=== PATIENT | female | born 1975 | race Caucasian/White ===

== ENCOUNTER 2016-09-09 10:49 | Emergency (ER) | payer OTHER ==
[~2016-09-09] VITALS: Ht 157.5 cm; Wt 88.5 kg
[~2016-09-09 10:49] MED LIST: AMOX1TAB10 PO; HYDR-3498 PO; IBUP-1542 PO
[2016-09-09 10:54] VITALS: Ht 157.5 cm; Wt 88.5 kg
[2016-09-09 12:07] LABS: BASOPHIL # 0.2 10^3/ul (0.0-0.1); BASOPHILS % 1.7 % (0.0-2.0); EOSINOPHILS # 0.1 10^3/ul (0.0-0.5); HEMATOCRIT 38.9 % (37.0-47.0); HEMOGLOBIN 12.6 g/dl (12.0-16.0); LYMPHOCYTES # 2.4 10^3/ul (0.8-2.9); MEAN CORPUSCULAR HEMOGLOBIN 27.9 pg (29.0-33.0); MEAN CORPUSCULAR HGB CONC 32.4 g/dl (32.0-37.0); MEAN CORPUSCULAR VOLUME 86.1 fl (82.0-101.0); MEAN PLATELET VOLUME 8.5 fl (7.4-10.4); MONOCYTE # 0.5 10^3/ul (0.3-0.9); MONOCYTES % 5.1 % (0.0-11.0); NEUTROPHIL # 6.7 10^3/ul (1.6-7.5); NEUTROPHILS % 68.2 % (39.0-77.0); PLATELET COUNT 378 10^3/UL (140-440); RED BLOOD COUNT 4.51 10^6/ul (4.20-5.40); RED CELL DISTRIBUTION WIDTH 14.5 % (11.5-14.5); UNCORRECTED WBC 9.8 10^3/ul (4.8-10.8); WHITE BLOOD COUNT 9.8 10^3/ul (4.8-10.8)
[2016-09-09 12:09] LABS: CONDITION 1
[2016-09-09 12:15] LABS: ALBUMIN 3.9 g/dl (3.3-4.9); POTASSIUM 4.2 mmol/L (3.5-5.1)
[2016-09-09 12:17] LABS: CREATININE 0.6 mg/dl (0.44-1.00)
[2016-09-09 12:18] LABS: ALBUMIN/GLOBULIN RATIO 1.3; BILIRUBIN,INDIRECT 0.1 mg/dl (0-1.1); BILIRUBIN,TOTAL 0.1 mg/dl (0.2-1.3); TOTAL PROTEIN 6.9 g/dl (6.1-8.1)
[2016-09-09 12:19] LABS: CALCIUM 8.8 mg/dl (8.4-10.2)
[2016-09-09 13:18] LABS: URINE BLOOD (Dip) POC Negative (NEGATIVE)
[2016-09-09] MEDS ORDERED: CEFTRIAXONE 1 GM INJ IM ONE (14:30)
[2016-09-09] MEDS ORDERED: CIPR500T4 PO (14:30)
[2016-09-09 15:15] VITALS: BP 125/64; PULSE 72; RESP 18; TEMP 98.5
--- NOTE | 2016-09-09 18:03 | ERD ---
ER Documentation Chief Complaint Date/Time DATE: 09/09/16 TIME: 17:40 Chief Complaint here for numbness of hands and VALDES did a random glucose check and had 200+ HPI Patient is a 41-year-old female she complains of headache polyuria frequency polydipsia. She says 4 days ago she checked her blood sugar and it was 264 this was 2 hours after she had eaten. She has some numbness in her arms and legs. Sometimes blurry vision dry mouth. Worried about diabetes. No past medical history allergies of medications. ROS All systems reviewed and are negative except as per history of present illness. Medications Home Meds Active Scripts Ciprofloxacin Hcl* (Ciprofloxacin Hcl*) 500 Mg Tablet, 500 MG PO BID for 7 Days , TAB Prov:BETSY BERKOWITZ DO 09/09/16 Ibuprofen* (Motrin*) 600 Mg Tab, 600 MG PO Q6, #30 TAB Prov:PIEDAD WETZEL PA-C 03/14/16 Hydrocodone Bit-Acetaminophen* (Monitor*) 5-325 Mg Tab, 1 TAB PO Q6 Y for PAIN, # 10 TAB Prov:PIEDAD WETZEL PA-C 03/14/16 Amox Tr/Potassium Clavulanate (Amox Tr-K Clv 875-125 Mg Tab) 1 Tab Tablet, 1 TAB PO BID for 7 Days, #14 TAB Prov:PIEDAD WETZEL PA-C 03/14/16 Allergies Allergies: Coded Allergies: No Known Allergy (Unverified , 05/22/14) PMhx/Soc History of Surgery: Yes () Anesthesia Reaction: No Hx Neurological Disorder: No Hx Respiratory Disorders: No Hx Cardiac Disorders: No Hx Psychiatric Problems: No Hx Miscellaneous Medical Probl: No Hx Alcohol Use: No Hx Substance Use: No Hx Tobacco Use: No Physical Exam Vitals Vital Signs Date Time Temp Pulse Resp B/P Pulse Ox O2 Delivery O2 Flow Rate FiO2 09/09/16 15:15 98.5 72 18 125/64 100 Room Air 09/09/16 10:54 98.5 72 18 131/62 100 Physical Exam Const: [Alert oriented 4, well-nourished well-developed nontoxic- appearing no apparent distress, interacts appropriately] Head: [Normocephalic/atraumatic, no scalp lesions] Eyes: [Normal Conjunctiva, PERRLA, EOMI no conjunctival injection no conjunctival discharge] ENT: [Normal External Ears, Nose and Mouth, no tonsillar exudates no tonsillar erythema no tonsillar edema oropharynx no erythema. bilateral ear canals are patent, bilateral tympanic membranes nonerythematous.] Neck: [Full range of motion. No meningismus. No cervical lymphadenopathy] Resp: [Clear to auscultation bilaterally, no wheezes rhonchi or rales, breathing normally, no tachypnea no nasal flaring no grunting no accessory muscle use no retractions] Cardio: [Regular rate and rhythm, no murmurs] Abd: [Soft, non tender, non distended. Normal bowel sounds, no rebound rigidity or guarding. Normoactive bowel sounds no flank tenderness, negative McBurney's negative Asif sign.] Skin: [No petechiae or rashes, no hives no urticaria no abscess no laceration no new warmth] Back: [No midline or flank tenderness, full range of motion without pain ] Ext: [No cyanosis, clubbing or edema] Neuro: M/S: Alert and oriented 4. Face: EOMI, face and pharynx with normal sensation and function Motor: Normal strength throughout, muscle strength is 5 out of 5 bilateral upper extremity and bilateral lower extremity Sensation: Normal sensation throughout Speech: Normal Cerebel: Normal coordination Normal gait DTR: 2+ and symmetric upper/lower extremities Psych: [Normal Mood and Affect, no suicidal ideation or homicide ideation] Result Diagram: 09/09/16 1150 09/09/16 1150 Results 24 hrs Laboratory Tests Test 09/09/16 11:17 09/09/16 11:50 09/09/16 13:18 Bedside Glucose 108mg/dL Alanine Aminotransferase (ALT/SGPT) 31IU/L Albumin 3.9g/dl Albumin/Globulin Ratio 1.30 Alkaline Phosphatase 78IU/L Anion Gap 15 Aspartate Amino Transf (AST/SGOT) 15IU/L Basophils # 0.210^3/ul Basophils % 1.7% Blood Morphology Comment Blood Urea Nitrogen 13mg/dl Calcium Level 8.8mg/dl Carbon Dioxide Level 28mmol/L Chloride Level 108mmol/L Creatinine 0.60mg/dl Direct Bilirubin 0.00mg/dl Eosinophils # 0.110^3/ul Eosinophils % 1.0% Globulin 3.00g/dl Glucose Level 98mg/dl Hematocrit 38.9% Hemoglobin 12.6g/dl Indirect Bilirubin 0.1mg/dl Lymphocytes # 2.410^3/ul Lymphocytes % 24.0% Mean Corpuscular Hemoglobin 27.9pg Mean Corpuscular Hemoglobin Concent 32.4g/dl Mean Corpuscular Volume 86.1fl Mean Platelet Volume 8.5fl Monocytes # 0.510^3/ul Monocytes % 5.1% Neutrophils # 6.710^3/ul Neutrophils % 68.2% Nucleated Red Blood Cells # 0.010^3/ul Nucleated Red Blood Cells % 0.0/100WBC Platelet Count 01636^3/UL Potassium Level 4.2mmol/L Red Blood Count 4.5110^6/ul Red Cell Distribution Width 14.5% Sodium Level 147mmol/L Total Bilirubin 0.1mg/dl Total Protein 6.9g/dl White Blood Count 9.810^3/ul Bedside Urine Blood Negative Bedside Urine Glucose (UA) Negative Bedside Urine Ketones (LAB) Negative Bedside Urine Leukocyte Esterase (L Negative Bedside Urine Nitrite (LAB) Positive Bedside Urine Protein (LAB) Trace Bedside Urine pH (LAB) 7.5 Current Medications Medications (Trade) Dose Ordered Sig/Jake Route PRN Reason Start Time Stop Time Status Last Admin Dose Admin Ceftriaxone Sodium (Rocephin) 1 gm ONCE ONCE IM 09/09/16 14:30 09/09/16 14:31 DC 09/09/16 15:06 Procedures/MDM Urine shows positive nitrites negative leukocytes, with a positive nitrites she likely has a UTI explaining her urinary frequency. Her blood sugar is not elevated she does not have glucosuria so less likely that she has diabetes however she can have an outpatient workup for possible diabetes and they can do a fasting blood sugar. Will give her antibiotics and she is to follow-up with her primary doctor. I doubt pyelonephritis as she has no fever no flank tenderness. I doubt appendicitis diverticulitis or acute infectious or inflammatory intra-abdominal process. She has no neurological deficits so I did not feel she warranted a CAT scan. Vital signs are stable she appears well since she stable for discharge and outpatient follow-up. Departure Diagnosis: Primary Impression: Acute UTI Additional Impression: Polyuria Condition: Stable Patient Instructions: Understanding Urinary Tract Infections (UTIs) BETSY BERKOWITZ DO Sep 09, 2016 17:50
== END 2016-09-09 15:27 | disposition home or self-care (01) ==
LOC: FTE 10:49
DX: N39.0 Urinary tract infection, site not specified (principal); R35.8 Other polyuria
CPT/HCPCS: 80053; 81003; 82962; 85025; J0696; 96372

== ENCOUNTER 2017-01-12 14:58 | Emergency (ER) | payer OTHER ==
[~2017-01-12] VITALS: Wt 71.0 kg
[~2017-01-12 14:58] MED LIST changes: +CIPR500T4 PO
[2017-01-12] MEDS ORDERED: IBUPROFEN 800 MG TAB PO ONE (17:00)
--- NOTE | 2017-01-12 17:19 | RADRPT ---
PROCEDURE: Shoulder series CLINICAL INDICATION: Shoulder pain status post trauma TECHNIQUE: Three views of the right shoulder. COMPARISON: None available FINDINGS: The osseous structures are intact with no evidence of fracture or dislocation. The acromioclavicula r and coracoclavicular regions are unremarkable. The soft tissues are normal in appearance. The rig ht lung apex and right ribs are normal. IMPRESSION: 1. No acute fractures or dislocations. RPTAT: HDC .Tamiko Del Toro MD, Date Time Electronically viewed and signed by .Tamiko Del Toro MD, on 01/12/2017 17:19 .C/
[2017-01-12] MEDS ORDERED: IBUP800T25 PO (17:24)
[2017-01-12] MEDS ORDERED: HYDR-906 PO (17:24)
--- NOTE | 2017-01-12 17:25 | ERD ---
ER Documentation Chief Complaint Date/Time DATE: 01/12/17 TIME: 17:24 Chief Complaint RIGHT SHOULDER PAIN X 1 DAYS HPI This a 41-year-old female who lost her balance walking this morning and fell landed on her right shoulder. She is complaining of pain in the right anterior shoulder with range of motion described as sharp that is worse with movement better with rest. Did not hit her head and get knocked out no head injury no neck pain no chest pain back pain other extremity pain no abdominal pain no difficulty breathing no numbness or weakness in the ROS All systems reviewed and are negative except as per history of present illness. Medications Home Meds Active Scripts Hydrocodone/Acetaminophen (York 5-325 Tablet) 1 Each Tablet, 1 TAB PO Q6H Y for PAIN, #20 TAB Prov:OTONIEL JOHNSONS Hali. DO 01/12/17 Ibuprofen* (Motrin*) 800 Mg Tab, 800 MG PO Q6H Y for PAIN AND OR ELEVATED TEMP, #30 TAB Prov:JEFF JOHNSON DO 01/12/17 Ciprofloxacin Hcl* (Ciprofloxacin Hcl*) 500 Mg Tablet, 500 MG PO BID for 7 Days , TAB Prov:SHOBETSY DO 09/09/16 Ibuprofen* (Motrin*) 600 Mg Tab, 600 MG PO Q6, #30 TAB Prov:PIEDAD WETZEL PA-C 03/14/16 Hydrocodone Bit-Acetaminophen* (York*) 5-325 Mg Tab, 1 TAB PO Q6 Y for PAIN, # 10 TAB Prov:PIEDAD WETZEL PA-C 03/14/16 Amox Tr/Potassium Clavulanate (Amox Tr-K Clv 875-125 Mg Tab) 1 Tab Tablet, 1 TAB PO BID for 7 Days, #14 TAB Prov:PIEDAD WETZEL PA-C 03/14/16 Allergies Allergies: Coded Allergies: No Known Allergy (Unverified , 05/22/14) PMhx/Soc History of Surgery: Yes () Anesthesia Reaction: No Hx Neurological Disorder: No Hx Respiratory Disorders: No Hx Cardiac Disorders: No Hx Psychiatric Problems: No Hx Miscellaneous Medical Probl: No Hx Alcohol Use: No Hx Substance Use: No Hx Tobacco Use: No FmHx Family History: No coronary disease Physical Exam Vitals Vital Signs Date Time Temp Pulse Resp B/P Pulse Ox O2 Delivery O2 Flow Rate FiO2 01/12/17 15:18 98.0 71 18 123/71 99 Physical Exam Const: Well-developed, well-nourished Head: Atraumatic, normocephalic Eyes: Normal Conjunctiva, PERRLA, EOMI, normal sclera, no nystagmus ENT: Normal External Ears, Nose and Mouth, moist mucus membranes. Neck: Full range of motion. No meningismus, no lymphadenopathy. Resp: Clear to auscultation bilaterally, no wheezing, rhonchi, rales Cardio: Regular rate and rhythm, no murmurs, S1 S2 present Abd: Soft, non tender x 4, non distended. Normal bowel sounds, no guarding or rebound, no pulsitile abdominal masses or bruits Skin: No petechiae or rashes, no ecchymosis , no maculopapular rash Back: No midline or flank tenderness Ext: No cyanosis, or edema, FROM x 4, normal inspection, neurovascularly intact x 4, tenderness to the anterior right shoulder with limited arm flexion and abduction no dislocation Neur: Awake and alert, STR 5/5 x 4, sensation intact x 4, no focal findings, cerebellum intact Psych: Normal Mood and Affect Results 24 hrs Current Medications Medications (Trade) Dose Ordered Sig/Jake Route PRN Reason Start Time Stop Time Status Last Admin Dose Admin Ibuprofen (Motrin) 800 mg ONCE ONCE PO 01/12/17 17:00 01/12/17 17:01 DC 01/12/17 17:19 Procedures/MDM PROCEDURE: Shoulder series CLINICAL INDICATION: Shoulder pain status post trauma TECHNIQUE: Three views of the right shoulder. COMPARISON: None available FINDINGS: The osseous structures are intact with no evidence of fracture or dislocation. The acromioclavicular and coracoclavicular regions are unremarkable. The soft tissues are normal in appearance. The right lung apex and right ribs are normal. IMPRESSION: 1. No acute fractures or dislocations. RPTAT: HDC .Tamiko Del Toro MD, Date Time Electronically viewed and signed by .Tamiko Del Toro MDMD on 01/12/2017 17: 19 .C/ CC: JEFF JOHNSON DO Provided her the sling Departure Diagnosis: Primary Impression: Shoulder injury Encounter type: initial encounter Laterality: right Qualified Code: S49.91XA - Shoulder injury, right, initial encounter Condition: Stable Patient Instructions: Shoulder Contusion Referrals: DUNCAN BLACKWOOD MD (PCP) JEFF JOHNSON DO January 12, 2017 17:25
== END 2017-01-12 17:30 | disposition home or self-care (01) ==
LOC: FTE 14:58
DX: S49.91XA Unspecified injury of right shoulder and upper arm, initial encounter (principal); W18.39XA Other fall on same level, initial encounter; Y92.9 Unspecified place or not applicable
CPT/HCPCS: 73030; Z7502; Z7610

== ENCOUNTER 2017-06-24 20:22 | Inpatient (IN) | payer OTHER ==
[~2017-06-24] VITALS: Ht 152.4 cm; Wt 92.6 kg
[~2017-06-24 20:22] MED LIST changes: +HYDR-906 PO; +IBUP800T25 PO
[2017-06-25] VITALS (9 sets, daily range): BP systolic 97–111; BP diastolic 53–80; PULSE 56–72; RESP 18–20; TEMP 98; Ht 152.4 cm; Wt 92.6 kg
[2017-06-25] MEDS ORDERED: ASPIRIN 325 MG TAB PO STA (01:05)
[2017-06-25] MEDS ORDERED: NITROGLYCERIN 2% 1 GM OINT PKT TD STA (01:05)
--- NOTE | 2017-06-25 01:25 | ERA ---
ER Documentation Chief Complaint Date/Time DATE: 06/25/17 TIME: 01:24 Chief Complaint CP DESCRIBED PRESSURE, ALSO REPORT VALDES X TODAY ONLY HPI This is a 41-year-old female complains of onset today of off-and-on substernal chest pressure lasting about 30 minutes each time. Pain is described a pressure sensation with no radiation. She says she has no shortness of breath no palpitations no dizziness no syncope. The patient states she does not know she has any medical problems because she never goes to the doctor but her parents have not had any heart disease. Currently she has no chest pain. Pain is described as moderate strength ROS All systems reviewed and are negative except as per history of present illness. Medications Home Meds Active Scripts Hydrocodone/Acetaminophen (Delta 5-325 Tablet) 1 Each Tablet, 1 TAB PO Q6H Y for PAIN, #20 TAB Prov:JEFF JOHNSON DO 01/12/17 Ibuprofen* (Motrin*) 800 Mg Tab, 800 MG PO Q6H Y for PAIN AND OR ELEVATED TEMP, #30 TAB Prov:JEFF JOHNSON DO 01/12/17 Ciprofloxacin Hcl* (Ciprofloxacin Hcl*) 500 Mg Tablet, 500 MG PO BID for 7 Days , TAB Prov:BETSY BERKOWITZ DO 09/09/16 Ibuprofen* (Motrin*) 600 Mg Tab, 600 MG PO Q6, #30 TAB Prov:PIEDAD WETZEL PA-C 03/14/16 Hydrocodone Bit-Acetaminophen* (Delta*) 5-325 Mg Tab, 1 TAB PO Q6 Y for PAIN, # 10 TAB Prov:PIEDAD WETZEL PA-C 03/14/16 Amox Tr/Potassium Clavulanate (Amox Tr-K Clv 875-125 Mg Tab) 1 Tab Tablet, 1 TAB PO BID for 7 Days, #14 TAB Prov:PIEDAD WETZEL PA-C 03/14/16 Allergies Allergies: Coded Allergies: No Known Allergy (Unverified , 05/22/14) PMhx/Soc Medical and Surgical Hx: pt denies Medical Hx History of Surgery: Yes () Anesthesia Reaction: No Hx Neurological Disorder: No Hx Respiratory Disorders: No Hx Cardiac Disorders: No Hx Psychiatric Problems: No Hx Miscellaneous Medical Probl: No Hx Alcohol Use: No Hx Substance Use: No Hx Tobacco Use: No Smoking Status: Never smoker FmHx Family History: No coronary disease Physical Exam Vitals Vital Signs Date Time Temp Pulse Resp B/P Pulse Ox O2 Delivery O2 Flow Rate FiO2 06/25/17 00:36 98.0 74 20 111/71 100 Room Air 06/24/17 20:59 98.0 80 20 129/67 97 Physical Exam Const: Well-developed, well-nourished Head: Atraumatic, normocephalic Eyes: Normal Conjunctiva, PERRLA, EOMI, normal sclera, no nystagmus ENT: Normal External Ears, Nose and Mouth, moist mucus membranes. Neck: Full range of motion. No meningismus, no lymphadenopathy. Resp: Clear to auscultation bilaterally, no wheezing, rhonchi, rales Cardio: Regular rate and rhythm, no murmurs, S1 S2 present Abd: Soft, non tender x 4, non distended. Normal bowel sounds, no guarding or rebound, no pulsitile abdominal masses or bruits Skin: No petechiae or rashes, no ecchymosis , no maculopapular rash Back: No midline or flank tenderness Ext: No cyanosis, or edema, FROM x 4, normal inspection, neurovascularly intact x 4 Neur: Awake and alert, STR 5/5 x 4, sensation intact x 4, no focal findings, cerebellum intact Psych: Normal Mood and Affect Result Diagram: 06/25/1714406/25/17144 Results 24 hrs Laboratory Tests Test 06/25/17 01:45 White Blood Count 14.010^3/ul Red Blood Count 4.1010^6/ul Hemoglobin 11.9g/dl Hematocrit 37.0% Mean Corpuscular Volume 90.2fl Mean Corpuscular Hemoglobin 29.0pg Mean Corpuscular Hemoglobin Concent 32.2g/dl Red Cell Distribution Width 13.0% Platelet Count 84192^3/UL Mean Platelet Volume 10.1fl Neutrophils % 69.6% Lymphocytes % 22.1% Monocytes % 6.7% Eosinophils % 0.9% Basophils % 0.4% Nucleated Red Blood Cells % 0.0/100WBC Neutrophils # 9.810^3/ul Lymphocytes # 3.110^3/ul Monocytes # 0.910^3/ul Eosinophils # 0.110^3/ul Basophils # 0.110^3/ul Nucleated Red Blood Cells # 0.010^3/ul Sodium Level 141mmol/L Potassium Level 3.5mmol/L Chloride Level 106mmol/L Carbon Dioxide Level 27mmol/L Anion Gap 12 Blood Urea Nitrogen 13mg/dl Creatinine 0.65mg/dl Glucose Level 90mg/dl Calcium Level 8.9mg/dl Troponin I < 0.012ng/ml Current Medications Medications (Trade) Dose Ordered Sig/Jake Route PRN Reason Start Time Stop Time Status Last Admin Dose Admin Aspirin (Aspirin) 325 mg ONCE STAT PO 06/25/17 01:05 06/25/17 01:07 DC 06/25/17 01:55 Nitroglycerin (Nitroglycerin 2% Oint) 1 inch ONCE STAT TD 06/25/17 01:05 06/25/17 01:07 DC 06/25/17 01:55 Nitroglycerin (Nitroglycerin (Sl Tab) 0.4 Mg) 1 tab Q5M UP TO 3 DOSES PRN SL CHEST PAIN 06/25/17 01:30 Procedures/MDM EKG: Rate/Rhythm: Normal Sinus Rhythm,NL intervals QRS, ST, QT: NORMAL NH, QRS, QT] Impression: NORMAL EKG PROCEDURE: XR Chest. CLINICAL INDICATION: Chest pain. TECHNIQUE: Single frontal view of the chest. COMPARISON: None. FINDINGS: The cardiomediastinal silhouette is within normal limits. The lungs are clear. No signs of pleural fluid or pneumothorax are seen. The osseous structures and soft tissues are unremarkable. IMPRESSION: No evidence for active cardiopulmonary disease. RPTAT: [facility] Physician Johanne Date Time Electronically viewed and signed by Physician Johanne on 06/25/2017 02:33 RS/ CC: JEFF JOHNSON DO Patient's symptoms are concerning for cardiac cause will require inpatient workup and continuous monitoring. Further w/u for ischemia, arrhythmia, PE or dissection will be deferred to the inpatient team. Accepting Care Team: Current data and ongoing care discussed. Time: Time of admission Primary Provider: [KATHRINOXO] Consulting: [XOXOXO] Outstanding Data: none Departure Diagnosis: Primary Impression: Chest pain Qualified Code: R07.9 - Chest pain, unspecified type Condition: Stable JEFF JOHNSON DO Jun 25, 2017 01:25
[2017-06-25] MEDS ORDERED: NITROGLYCERIN (SL) 0.4 MG TAB SL PRN ×2 (01:30→03:00)
[2017-06-25 02:03] LABS: BASOPHIL # 0.1 10^3/ul (0.0-0.1); BASOPHILS % 0.4 % (0.0-2.0); EOSINOPHILS # 0.1 10^3/ul (0.0-0.5); EOSINOPHILS % 0.9 % (0.0-7.0); HEMOGLOBIN 11.9 g/dl (12.0-16.0); LYMPHOCYTES # 3.1 10^3/ul (0.8-2.9); LYMPHOCYTES % 22.1 % (15.0-51.0); MEAN CORPUSCULAR HGB CONC 32.2 g/dl (32.0-37.0); MEAN CORPUSCULAR VOLUME 90.2 fl (82.0-101.0); MEAN PLATELET VOLUME 10.1 fl (7.4-10.4); MONOCYTE # 0.9 10^3/ul (0.3-0.9); MONOCYTES % 6.7 % (0.0-11.0); NEUTROPHIL # 9.8 10^3/ul (1.6-7.5); NEUTROPHILS % 69.6 % (39.0-77.0); PLATELET COUNT 350 10^3/UL (140-415)
[2017-06-25 02:16] LABS: ANION GAP 12 (8-16); BLOOD UREA NITROGEN 13 mg/dl (7-20); CALCIUM 8.9 mg/dl (8.4-10.2); CARBON DIOXIDE 27 mmol/L (21-31); CHLORIDE 106 mmol/L (97-110); CREATININE 0.65 mg/dl (0.44-1.00); GLUCOSE 90 mg/dl (70-220); POTASSIUM 3.5 mmol/L (3.5-5.1); SODIUM 141 mmol/L (135-144)
--- NOTE | 2017-06-25 02:34 | RADRPT ---
PROCEDURE: XR Chest. CLINICAL INDICATION: Chest pain. TECHNIQUE: Single frontal view of the chest. COMPARISON: None. FINDINGS: The cardiomediastinal silhouette is within normal limits. The lungs are clear. No signs of pleural f luid or pneumothorax are seen. The osseous structures and soft tissues are unremarkable. IMPRESSION: No evidence for active cardiopulmonary disease. RPTAT: [facility] Physician Johanne Date Time Electronically viewed and signed by Physician Johanne on 06/25/2017 02:33 RS/
[2017-06-25 02:36] LABS: TROPONIN-I < 0.012 ng/ml (0.00-0.12)
[2017-06-25] MEDS ORDERED: ACETAMINOPHEN 325 MG TAB PO PRN (03:00)
[2017-06-25] MEDS ORDERED: NACL 0.9% 3 ML SYG IV SCH (03:00)
[2017-06-25] MEDS ORDERED: ONDANSETRON 4 MG INJ IV PRN (03:00)
--- NOTE | 2017-06-25 06:53 | HP ---
Date/Time of Note Date/Time of Note DATE: 06/25/17 TIME: 06:51 Assessment/Plan VTE Prophylaxis VTE Prophylaxis Intervention: SCD's Lines/Catheters IV [facility] Saline Lock Assessment/Plan Chief Complaint/Hosp Course This is a 41 year female being admitted to the telemetry floor for: #1 chest pain: Rule out ACS. Will check cardiac enzymes 3, first set negative. Will check a echocardiogram. Cardiac diet. Will check lipid panel. Consider cardiology if indicated # 2 obesity: We will check hemoglobin A1c, lipid panel, TSH #3 headache: This likely appears to be a tension headache. No focal neurological deficits. No alarming symptoms at this time. Will provide Tylenol as needed. If headaches persist or symptoms worsen we will consider imaging. #4 DVT GI prophylaxis: SCDs, acid vince Further treatment strategy will be implemented as per the clinical course Problems: HPI/ROS Admit Date/Time Admit Date/Time Jun 25, 2017 at 02:56 Hx of Present Illness Chief complaint: Chest pain This is a 41-year-old female complains of onset today of off-and-on substernal chest pressure lasting about 30 minutes each time. Pain is described a pressure sensation with no radiation. She did report diaphoresis after chest pain started as well as a headache. She says she has no shortness of breath no palpitations no dizziness no syncope. The patient states she does not know she has any medical problems because she never goes to the doctor but her parents have not had any heart disease. Currently she has no chest pain. Allergies: NKDA Medications: None ROS Const: As per HPI Eyes : No pain discharge or redness or change in visual acuity ENT: No pain, sore throat, congestion, congestion, dysphagia or discharge Respiratory: As per HPI Cardiovascular: As per HPI GI : no change in appetite, abdominal pain, nausea, vomiting, diarrhea, constipation, or change in the color his stool Genitourinary: No dysuria, hematuria, flank pain , discharge or CVA tenderness Musculoskeletal: No joint pain, back pain, neck pain, restricted range of motion in neck or joints Skin: No rash, bruising or hives Neuro: As per HPI Endocrine: No polyuria, polydipsia, temperature intolerance Psych: No hallucination, depression, anxiety or suicidal ideation PMH/Family/Social Past Medical History Medical History: no pertinent history Past Surgical History Past Surgical Hx: no surgical history Family History Significant Family History: diabetes, hypertension Social History Alcohol Use: none Smoking Status: Never smoker Drug Use: none Exam/Review of Systems Vital Signs Vitals Vital Signs Date Time Temp Pulse Resp B/P Pulse Ox O2 Delivery O2 Flow Rate FiO2 06/25/17 04:00 98.0 71 20 97/80 98 06/25/17 03:00 Room Air Intake and Output 06/24/17 06/24/17 06/25/17 15:00 23:00 07:00 Intake Total 550 ml Balance 550 ml Exam Exam General: This is an obese female sitting in bed in no acute distress HEENT: Atraumatic, normocephalic. The pupils are equal, round and reactive. Extraocular motor are intact Neck: Supple with full range of motion. No rigidity or meningismus Chest: Nontender Lungs: Clear to auscultation bilaterally no crackles rales or wheezing Heart: Normal S1-S2, Regular rhythm and rate. No overt murmurs appreciated on auscultation Abdomen: Soft , nontender, nondistended , bowel sounds are present. No guarding no rebound tenderness , No masses or organomegaly. No costovertebral temporal angle mass Extremities: Normal to inspection, no edema no cyanosis Neurologic: Normal mental status, speech normal, cranial nerves II through XII are intact, motor and sensory are intact, no focal weakness Additional Comments PROCEDURE: XR Chest. CLINICAL INDICATION: Chest pain. TECHNIQUE: Single frontal view of the chest. COMPARISON: None. FINDINGS: The cardiomediastinal silhouette is within normal limits. The lungs are clear. No signs of pleural fluid or pneumothorax are seen. The osseous structures and soft tissues are unremarkable. IMPRESSION: No evidence for active cardiopulmonary disease. RPTAT: [facility] Physician Johanne Date Time Electronically viewed and signed by Physician Johanne on 06/25/2017 02:33 RS/ CC: JEFF JOHNSON DO EKG: Rate/Rhythm: Normal Sinus Rhythm,NL intervals QRS, ST, QT: NORMAL SD, QRS, QT] Impression: NORMAL EKG As per ED physician documentation Labs Result Diagram: 06/25/1714406/25/17144 Medications Medications Current Medications Ondansetron HCl (Zofran Inj) 4 mg Q6H PRN IV NAUSEA AND/OR VOMITING; Start at 03:00 Nitroglycerin (Nitroglycerin (Sl Tab) 0.4 Mg) 1 tab Q5M PRN SL CHEST PAIN; Start 06/25/17 at 03:00 Acetaminophen (Tylenol Tab) 650 mg Q6H PRN PO PAIN LEVEL 1-3 OR FEVER; Start 06/25/17 at 03:00 Famotidine (Pepcid) 20 mg Q12 PO ; Start 06/25/17 at 09:00 OLIVA KOVACS Jun 25, 2017 06:53
[2017-06-25] MEDS ORDERED: FAMOTIDINE 20 MG TAB PO SCH (09:00)
[2017-06-25 09:13] LABS: CREATINE KINASE 45 IU/L (23-200)
[2017-06-25 09:23] LABS: CK-MB 0.41 ng/ml (0.0-2.4)
[2017-06-25 09:25] LABS: TROPONIN-I < 0.012 ng/ml (0.00-0.12)
[2017-06-25 14:28] LABS: CREATINE KINASE 43 IU/L (23-200)
[2017-06-25 14:40] LABS: CK-MB 0.31 ng/ml (0.0-2.4)
[2017-06-25 14:46] LABS: TROPONIN-I < 0.012 ng/ml (0.00-0.12)
--- NOTE | 2017-06-25 17:38 | PDOCDIS ---
Discharge Instructions DIAGNOSIS Discharge Diagnosis Atypical chest pain. CONDITION Patient Condition: Stable HOME CARE INSTRUCTIONS: Special Diet: low fat low cholesterol FOLLOW UP/APPOINTMENTS Follow-up Plan Lalo Vargas MD Specialty: Internal Medicine Office Address: [address] [place], [place] [id number] Office OTHER ORDERS: Other Orders: 1. Take a regular, preferably low-cholesterol diet. 2. Follow-up with your primary care physician in 2 weeks. If you do not have a primary care physician, please call Dr. Lalo Vargas's office. 3. Resume activities as tolerated. CAROLINA GONZALEZ NP Jun 25, 2017 17:38
--- NOTE | 2017-06-25 17:49 | DS ---
Date/Time of Note Date/Time of Note DATE: 06/25/17 TIME: 17:46 Discharge Summary Admission/Discharge Info Admit Date/Time Jun 25, 2017 at 02:56 Discharge Date/Time Discharge Diagnosis 1. Atypical chest pain. 2. Obesity. Patient Condition: Stable Procedures CXR No acute cardiopulmonary disease. Twelve-Lead EKG Normal sinus rhythm. Hx of Present Illness Chief complaint: Chest pain This is a 41-year-old female complained of off-and-on substernal chest pressure lasting about 30 minutes each time. Pain was described as pressure sensation with no radiation. She did report diaphoresis after chest pain started as well as a headache. She said she has no shortness of breath, no palpitations, no dizziness, no syncope. Allergies: NKDA Medications: None Hospital Course The patient was admitted to inpatient telemetry floor. Serial troponins were ordered. A 2D echocardiogram was obtained. The patient serial troponins remained negative. The patient's chest pain was highly suggestive of noncardiac origin. The patient's chest pain was reproducible upon palpation of her chest. Therefore, it was concluded that the patient does not have any underlying acute coronary syndrome. The patient serial troponins are negative. The patient already had a 2D echocardiogram done. Official results are pending at this time. The patient's chest pain is completely resolved. The patient has no any significant comorbidities including any diabetes, essential hypertension, or family history of CAD that necessitates further evaluation of her chest pain including any cardiac stress test. The patient is morbidly obese with a BMI of 39.9 kg/m. The patient's hemoglobin A1c was within normal limits. The patient was advised on weight reduction. The patient's chest pain has completely resolved and the patient is stable to be discharged home to be followed up with outpatient primary care physician. Discharge Instructions 1. Take a regular, preferably low-cholesterol diet. 2. Follow-up with your primary care physician in 2 weeks. If you do not have a primary care physician, please call Dr. Lalo Vargas's office. 3. Resume activities as tolerated. The patient verbalized understanding of her discharge instructions. Case discussed with Dr. Cantu. Home Meds Discontinued Scripts Hydrocodone/Acetaminophen ([place] 5-325 Tablet) 1 Each Tablet, 1 TAB PO Q6H Y for PAIN, #20 TAB Prov:JEFF JOHNSON DO 01/12/17 Ibuprofen* (Motrin*) 800 Mg Tab, 800 MG PO Q6H Y for PAIN AND OR ELEVATED TEMP, #30 TAB Prov:JEFF JOHNSON DO 01/12/17 Ciprofloxacin Hcl* (Ciprofloxacin Hcl*) 500 Mg Tablet, 500 MG PO BID for 7 Days , TAB Prov:BETSY BERKOWITZ DO 09/09/16 Ibuprofen* (Motrin*) 600 Mg Tab, 600 MG PO Q6, #30 TAB Prov:PIEDAD WETZEL PA-C 03/14/16 Hydrocodone Bit-Acetaminophen* ([place]*) 5-325 Mg Tab, 1 TAB PO Q6 Y for PAIN, # 10 TAB Prov:PIEDAD WETZEL PA-C 03/14/16 Amox Tr/Potassium Clavulanate (Amox Tr-K Clv 875-125 Mg Tab) 1 Tab Tablet, 1 TAB PO BID for 7 Days, #14 TAB Prov:PIEDAD WETZEL PA-C 03/14/16 Follow-up Plan Lalo Vargas MD Specialty: Internal Medicine Office Address: [address] [place] [address] Office Primary Care Provider Care Physician No Primary Time spent on discharge: > 30 minutes Pending Labs Laboratory Tests Test 06/25/17 01:45 06/25/17 01:46 06/25/17 08:01 06/25/17 13:57 White Blood Count 14.010^3/ul (4.8-10.8) Red Blood Count 4.1010^6/ul (4.20-5.40) Hemoglobin 11.9g/dl (12.0-16.0) Hematocrit 37.0% (37.0-47.0) Mean Corpuscular Volume 90.2fl (82.0-101.0) Mean Corpuscular Hemoglobin 29.0pg (29.0-33.0) Mean Corpuscular Hemoglobin Concent 32.2g/dl (32.0-37.0) Red Cell Distribution Width 13.0% (11.5-14.5) Platelet Count 32911^3/UL (140-415) Mean Platelet Volume 10.1fl (7.4-10.4) Neutrophils % 69.6% (39.0-77.0) Lymphocytes % 22.1% (15.0-51.0) Monocytes % 6.7% (0.0-11.0) Eosinophils % 0.9% (0.0-7.0) Basophils % 0.4% (0.0-2.0) Nucleated Red Blood Cells % 0.0/100WBC (0.0-0.0) Neutrophils # 9.810^3/ul (1.6-7.5) Lymphocytes # 3.110^3/ul (0.8-2.9) Monocytes # 0.910^3/ul (0.3-0.9) Eosinophils # 0.110^3/ul (0.0-0.5) Basophils # 0.110^3/ul (0.0-0.1) Nucleated Red Blood Cells # 0.010^3/ul (0.0-0.0) Sodium Level 141mmol/L (135-144) Potassium Level 3.5mmol/L (3.5-5.1) Chloride Level 106mmol/L (97-110) Carbon Dioxide Level 27mmol/L (21-31) Anion Gap 12 (8-16) Blood Urea Nitrogen 13mg/dl (7-20) Creatinine 0.65mg/dl (0.44-1.00) Glucose Level 90mg/dl (70-220) Calcium Level 8.9mg/dl (8.4-10.2) Troponin I < 0.012ng/ml (0.00-0.12) < 0.012ng/ml (0.00-0.12) < 0.012ng/ml (0.00-0.12) Hemoglobin A1c 5.3% (0-5.9) Creatine Kinase 45IU/L (23-200) 43IU/L (23-200) Creatine Kinase Index 0.9 0.7 Creatinine Kinase MB (Mass) 0.41ng/ml (0.0-2.4) 0.31ng/ml (0.0-2.4) CAROLINA GONZALEZ NP Jun 25, 2017 17:48
[2017-06-25 20:18] LABS: ADD UMIC YES; UR ASCORBIC ACID NEGATIVE (NEGATIVE); UR BACTERIA MODERATE /HPF (NONE SEEN); UR BILIRUBIN (Dip) NEGATIVE (NEGATIVE); UR BLOOD (Dip) NEGATIVE (NEGATIVE); UR BUDDING YEAST MANY /HPF (NONE SEEN); UR CLARITY SLIGHTLY CLOUDY (CLEAR); UR COLOR YELLOW (YELLOW); UR GLUCOSE (Dip) NEGATIVE (NEGATIVE); UR KETONES (Dip) NEGATIVE (NEGATIVE); UR LEUKOCYTE ESTERASE (Dip) 1+ Leu/ul (NEGATIVE); UR NITRITE (Dip) POSITIVE (NEGATIVE); UR RBC 1 /HPF (0-5); UR SPECIFIC GRAVITY (Dip) 1.009 (1.003-1.030); UR SQUAMOUS EPITHELIAL CELL FEW /HPF (FEW); UR TOTAL PROTEIN (Dip) NEGATIVE (NEGATIVE); UR UROBILINOGEN (Dip) NEGATIVE (NEGATIVE)
--- NOTE | 2017-06-26 14:03 | RADRPT ---
Echocardiogram Report Patient Name: DIAZ WOODALL Gender: Female Date: 1975 Study Date: 25-Jun-2017 Veneer Sheet Repairer: Tesha [facility] Location: 5536 Ref. Physician: OLIVA KOVACS Quality: Adequate Procedures: Transthoracic echocardiogram with complete 2D, M-Mode, and doppler examination. Indications: Chest Pain. 2D/M Mode Doppler Measurement Value Normal Ranges Measurement Value Normal Ranges LVIDd 2D 4.8 3.5 - 5.6 cm AV Peak Jai 1.8 m/sec LVIDs 2D 3.2 2.1 - 4.1 cm AV Peak PG 12.0 mmHg FS 2D 34.2 % LVOT Peak Jai 1.0 m/sec LVPWd 2D 1.0 0.6 - 1.1 cm LVOT Peak PG 4.0 mmHg IVSd 2D 0.9 0.6 - 1.1 cm MV E Peak Jai 0.9 m/sec IVS/LVPW 2D 0.9 MV A Peak Jai 0.7 m/sec AoR Diam 2D 2.3 2.0 - 3.7 cm MV E/A 1.3 LA/Ao 2D 1 0 - 1 MV Decel Time 187 msec EDV 2D 111.0 cm3 MV E/A 1.3 ESV 2D 31.6 cm3 TR Peak Jai 2.8 m/sec LA Dimen 2D 3.3 2.3 - 4.0 cm TR Peak PG 31.0 mmHg RVSP 34.0 mmHg Findings Left Ventricle: Normal left ventricular systolic function. Normal left ventricular cavity size. Normal left ventricular wall thickness. Ejection fraction is visually estimated at 60 %. Abnormal Diastolic Function. Right Ventricle: Normal right ventricular size. Normal right ventricular systolic function. Left Atrium: The left atrium is normal in size. Right Atrium: The right atrium is normal in size. Mitral Valve: Mild mitral leaflet calcification. Mild mitral annular calcification. Trace mitral regurgitation. Aortic Valve: No significant aortic stenosis or insufficiency. Aortic cusps appear mildly calcified. Trace aortic valve regurgitation. Tricuspid Valve: Normal appearance and function of the tricuspid valve with trace physiologic regurgitation. Estimated peak PA systolic pressure 34 mmHg. Pulmonic Valve: Pulmonic valve not well visualized. There is trace pulmonic regurgitation. Pericardium: Normal pericardium with no significant pericardial effusion. Aorta: Normal aortic root. IVC: Normal size and normal respiratory collapse consistent with normal right atrial pressure. Conclusions 1.Normal left ventricular systolic function. Normal left ventricular cavity size. Normal left ventricular wall thickness. Ejection fraction is visually estimated at 60 %. Abnormal Diastolic Function. 2.Normal right ventricular size. Normal right ventricular systolic function. 3.The left atrium is normal in size. 4.The right atrium is normal in size. 5.No significant valvular stenosis or regurgitation seen. 6.Normal pericardium with no significant pericardial effusion. Electronically Signed By: Jose Daniel Perera 26-Jun-2017 14:02:17 -0700 Patient Name: DIAZ WOODALL Study Date: 25-Jun-2017 [id number]
== END 2017-06-25 18:37 | disposition home or self-care (01) | DRG 313 ==
LOC: FTE 20:22 → MS4 06-25 02:56
PROVIDERS: ADMIT Family Medicine; ATTEND Family Medicine
DX: R07.89 Other chest pain (principal); E66.9 Obesity, unspecified; Z68.39 Body mass index [BMI] 39.0-39.9, adult; R51 Headache
CPT/HCPCS: 36415; 71010; 80048; 81001; 82550; 82553; 83036; 84484; 85025; 93005; 93306

== ENCOUNTER 2017-07-25 15:07 | Emergency (ER) | payer OTHER ==
[~2017-07-25] VITALS: Ht 157.5 cm; Wt 89.8 kg
[2017-07-25 15:09] VITALS: Ht 157.5 cm; Wt 89.8 kg
[2017-07-25] MEDS ORDERED: KETOROLAC 60 MG INJ IM STA (15:30)
--- NOTE | 2017-07-25 16:15 | RADRPT ---
PROCEDURE: XR Right Ankle. CLINICAL INDICATION: ankle pain s/p trauma TECHNIQUE: AP, oblique and lateral views of the right ankle were performed. COMPARISON: None. FINDINGS: There is normal mineralization and alignment. No acute fracture or osseous lesion is identified. The joints are normal. There is bimalleolar soft tissue swelling. IMPRESSION: Bimalleolar soft tissue swelling right ankle. No fracture or dislocation . .Yadiel Doll MD, MD Date Time Electronically viewed and signed by .Yadiel Doll MD, on 07/25/2017 16:14 .A/
--- NOTE | 2017-07-25 16:56 | ERD ---
ER Documentation Chief Complaint Chief Complaint Complains of right ankle pain and swelling this am HPI 41y/o chronic female patient with significant medical history, presents to the emergency department with sound c/o sudden onset of right ankle pain, constant, after a forced dorsiflexion that occurred yesterday. The pain is dull, rated 6/ 10, radiated to right foot, associated with inability of bear weight. Aggravating factors: Walking and direct pressure. Alleviating factors: Elevating the extremity. Denies numbness, tingling, deformity. Treatment attempted: None. ROS SYSTEMIC symptoms: no fever, chills, no night sweats, no weight loss EYE symptoms: No blurred vision, no eye discharge OTOLARYNGEAL symptoms: No hearing loss. No ear pain, no sore throat CARDIOVASCULAR symptoms: No chest pain or discomfort, no palpitations. PULMONARY symptoms: No dyspnea, no cough, no wheezing. GASTROINTESTINAL symptoms: No abdominal pain, no nausea, no vomiting, no diarrhea MUSCULOSKELETAL symptoms: Per HPI NEUROLOGY symptoms: No confusion, no syncope, no numbness or tingling. SKIN no rashes Medications Home Meds Active Scripts Ibuprofen* (Motrin*) 600 Mg Tab, 600 MG PO Q8, #30 TAB Prov:GEE JORGENSEN MD 07/25/17 Allergies Allergies: Coded Allergies: No Known Allergy (Unverified , 05/22/14) PMhx/Soc History of Surgery: No Anesthesia Reaction: No Hx Neurological Disorder: No Hx Respiratory Disorders: No Hx Cardiac Disorders: No Hx Psychiatric Problems: No Hx Miscellaneous Medical Probl: No Hx Alcohol Use: No Hx Substance Use: No Hx Tobacco Use: No Smoking Status: Never smoker Physical Exam Vitals Vital Signs Date Time Temp Pulse Resp B/P Pulse Ox O2 Delivery O2 Flow Rate FiO2 07/25/17 15:09 98.8 78 20 121/71 100 Physical Exam Patient is in no acute distress, vital signs stable. Alert and fully oriented. EYES: PERRLA, EOMI, Sclera and conjunctiva appear normal. EARS: Canals clear, tympanic membranes WNL THROAT: Normal oropharynx. NECK: Supple, No lymphadenopathy. Full ROM without pain or tenderness. HEART: RRR, no rubs, murmurs, clicks or gallops. LUNGS: Clear to auscultation. ABDOMEN: Soft, non-tender without masses or hepatosplenomegaly. EXTREMITIES: Right ankle: Normal inspection, no deformity, tenderness over external malleolus, decreased range of motion. Neurovascular intact, capillary refill less than 2 seconds Results 24 hrs Current Medications Medications (Trade) Dose Ordered Sig/Jake Route PRN Reason Start Time Stop Time Status Last Admin Dose Admin Ketorolac Tromethamine (Toradol) 60 mg ONCE STAT IM 07/25/17 15:30 07/25/17 15:33 DC 07/25/17 15:37 [place] [address] Radiology Main Line: [phone] DIAGNOSTIC IMAGING REPORT Patient: DIAZ WOODALL : 1975 Age: 41 Sex: F MR #: [id number] DOS: 07/25/17 1530 Ordering MD: GEE JORGENSEN MD Location: [facility] Room/Bed: PROCEDURE: XR Right Ankle. CLINICAL INDICATION: ankle pain s/p trauma TECHNIQUE: AP, oblique and lateral views of the right ankle were performed. COMPARISON: None. FINDINGS: There is normal mineralization and alignment. No acute fracture or osseous lesion is identified. The joints are normal. There is bimalleolar soft tissue swelling. IMPRESSION: Bimalleolar soft tissue swelling right ankle. No fracture or dislocation . .Yadiel Doll MD, MD Date Time Electronically viewed and signed by .Yadiel Doll MD, MD on 07/25/2017 16: 14 .A/ CC: GEE JORGENSEN MD Procedures/MDM 41 y/o female patient previously healthy, presents to the ED c/o right ankle pain for 1 day. Vital signs stable, Physical exam unremarkable. Differential diagnosis include but not limited to: Fracture, dislocation, sprain /strain. Pertinent Data: Radiology: FINDINGS: There is normal mineralization and alignment. No acute fracture or osseous lesion is identified. The joints are normal. There is bimalleolar soft tissue swelling. Physical examination and clinical presentation consistent most likely with right ankle sprain. During the ED course the patient received treatment with Toradol and splint presenting overall improvement of the symptoms. Splint evaluation: Type: Aircast Location: Right lower extremity Position: good alignment in anatomical position Neurovascular intact Results and clinical impression discussed with patient who agrees with management. The patient is stable to be treated outpatient and will be discharged home with a Rx for ibuprofen Side effects of prescribed medications (headache, rash, nausea, vomiting, diarrhea) were reviewed. Side effects of prescribed NSAID medication (GI distress, edema, bleeding, HTN) were reviewed. The patient was instructed to follow up with the primary care provider in the next 48h. If symptoms persist, worsen or new symptoms develop, then patient should return to the ED immediately. Instructions explained and given to patient in Macedonian with acknowledgment and demonstrated understanding. Disclaimer: Inadvertent spelling and grammatical errors are likely due to EHR/ dictation software use and do not reflect on the overall quality of patient care. Also, please note that the electronic time recorded on this note does not necessarily reflect the actual time of the patient encounter. Departure Diagnosis: Primary Impression: Right ankle sprain Condition: Stable Patient Instructions: Treating Ankle Sprains Additional Instructions: Muchas manjinder por [facility] para lomeli servicio. Esperamos que en lomeli visita a la lita de emergencia lomeli problema medico haya sido solucionado y que se sienta mucho mejor. Para estar seguros que lomeli mejoria sigue en proceso, le pedimos el favor de hacer alex bairon de seguimiento medico con lomeli doctor primario en los proximos 2-4 gonzalez. Lleve con usted estos documentos y las medicinas recetadas. Si emmanuel sintomas empeoran y no puede rob a lomeli doctor, por favor regrese a lita de emergencia. En elie que usted no tenga un mdico de atencin primaria: Llame al mdico o clnica comunitaria de referencia que aparece abajo lon las horas de consultorio para hacer alex bairon para que le vean. CLINICAS: [facility] [phone] [address] [facility] [phone] [address] [facility] [phone] [address] [facility] [phone] [address] [facility] [phone] [facility]. [phone] GEE MORALES MD Jul 25, 2017 16:56
[2017-07-25] MEDS ORDERED: IBUP-1542 PO (17:00)
== END 2017-07-25 17:10 | disposition home or self-care (01) ==
LOC: FTE 15:07
DX: S93.401A Sprain of unspecified ligament of right ankle, initial encounter (principal); X58.XXXA Exposure to other specified factors, initial encounter; Y92.9 Unspecified place or not applicable
CPT/HCPCS: 73600; 96372; J1885; Z7502

== ENCOUNTER 2017-10-15 12:58 | Emergency (ER) | END 2017-10-15 18:36 | disposition home or self-care (01) ==